=== PATIENT | male | born 1960 | race Caucasian/White ===

== ENCOUNTER 2018-06-09 10:13 | Inpatient (IN) | payer OTHER ==
[~2018-06-09] VITALS: Ht 182.9 cm; Wt 115.9 kg
[2018-06-09] VITALS (13 sets, daily range): BP systolic 112–132; BP diastolic 73–85
[2018-06-09] MEDS ORDERED: ANTACID SUSP 30 ML UDC (MYLANTA) PO ONE (10:30)
[2018-06-09] MEDS ORDERED: LIDOCAINE 2% VISCOUS 15 ML UDC PO ONE (10:30)
[2018-06-09] MEDS ORDERED: ASPIRIN 81 MG CHEW (CHILDREN'S ASA) PO ONE (10:30)
[2018-06-09] MEDS ORDERED: FAMOTIDINE 20 MG (PEPCID) TABLET PO STA (10:30)
--- NOTE | 2018-06-09 10:30 | ED Chest Pain ---
General Chief Complaint: Chest Pain Stated Complaint: CP Source: patient, spouse Exam Limitations: no limitations History of Present Illness Date Seen by Provider: Jun 09, 2018 Time Seen by Provider: 10:10 Initial Comments Patient presents to ER by private conveyance with chest pain that started yesterday morning. The pain is worse on deep inspiration or direct palpation over the left sternal margin. He does not have a history of coronary disease or COPD but he does wear CPAP and has had lung infections in the past. No cough. No fevers or chills. He took some Tylenol earlier today and that helped his pain some. No familial history of heart disease. He does not smoke have diabetes hypercholesterolemia, hypertension or hypothyroidism. Pain radiates down bilateral arms. Allergies and Home Medications Allergies Coded Allergies: No Known Drug Allergies (Unverified , 06/09/18) Home Medications Cyclobenzaprine HCl 10 Mg Tablet, 5 MG PO PRN PRN for BACK PAIN, (Reported) Metoprolol Succinate 50 Mg Tab.er.24h, 50 MG PO DAILY, (Reported) Patient Home Medication List Home Medication List Reviewed: Yes Review of Systems Review of Systems Constitutional: No chills, No diaphoresis, No fever, No malaise EENTM: No Blurred Vision, No Double Vision Respiratory: Denies Cough; Shortness of Air Cardiovascular: See HPI, Chest Pain; Denies Edema, Denies Irregular Heart Rate , Denies Lightheadedness, Denies Palpitations, Denies Syncope Gastrointestinal: Denies Constipated, Denies Diarrhea, Denies Nausea Genitourinary: Denies Burning, Denies Discharge Musculoskeletal: No back pain, No joint pain Skin: No pruritus, No rash Past Ivqhjgy-Lwkzyn-Blswrw Hx Patient Social History Alcohol Use: Denies Use Recreational Drug Use: No Smoking Status: Never a Smoker Recent Foreign Travel: No Contact w/Someone Who Travel: No Physical Exam Vital Signs Vital Signs - First Documented 06/09/18 10:24 Temp 98.1 Pulse 78 Resp 24 B/P (MAP) 179/108 (131) Pulse Ox 93 O2 Delivery Room Air Capillary Refill : Less Than 3 Seconds Height, Weight, BMI Height: '" Weight: lbs. oz. kg; BMI Method: General Appearance: Anxious, Mild Distress HEENT: PERRL/EOMI, Moist Mucous Membranes Neck: Full Range of Motion, Normal Inspection Respiratory: No Chest Non Tender; Lungs Clear, Normal Breath Sounds, No Accessory Muscle Use, No Respiratory Distress Cardiovascular: Regular Rate, Rhythm, No Edema, Normal Peripheral Pulses Extremity: Normal Capillary Refill, Normal Inspection, No Pedal Edema Neurologic/Psychiatric: Alert, Oriented x3, No Motor/Sensory Deficits Skin: Normal Color, Warm/Dry Progress/Results/Core Measures Results/Orders Lab Results Laboratory Tests Test 06/09/18 10:20 Range/Units White Blood Count 9.3 4.3-11.0 10^3/uL Red Blood Count 5.65 4.35-5.85 10^6/uL Hemoglobin 17.1 13.3-17.7 G/DL Hematocrit 50 40-54 % Mean Corpuscular Volume 89 80-99 FL Mean Corpuscular Hemoglobin 30 25-34 PG Mean Corpuscular Hemoglobin Concent 34 32-36 G/DL Red Cell Distribution Width 13.2 10.0-14.5 % Platelet Count 272 130-400 10^3/uL Mean Platelet Volume 10.2 7.4-10.4 FL Neutrophils (%) (Auto) 64 42-75 % Lymphocytes (%) (Auto) 25 12-44 % Monocytes (%) (Auto) 8 0-12 % Eosinophils (%) (Auto) 3 0-10 % Basophils (%) (Auto) 0 0-10 % Neutrophils # (Auto) 6.0 1.8-7.8 X 10^3 Lymphocytes # (Auto) 2.4 1.0-4.0 X 10^3 Monocytes # (Auto) 0.7 0.0-1.0 X 10^3 Eosinophils # (Auto) 0.2 0.0-0.3 10^3/uL Basophils # (Auto) 0.0 0.0-0.1 10^3/uL Prothrombin Time 13.6 12.2-14.7 SEC INR Comment 1.0 0.8-1.4 Activated Partial Thromboplast Time 37 H 24-35 SEC Sodium Level 136 135-145 MMOL/L Potassium Level 4.0 3.6-5.0 MMOL/L Chloride Level 106 98-107 MMOL/L Carbon Dioxide Level 19 L 21-32 MMOL/L Anion Gap 11 5-14 MMOL/L Blood Urea Nitrogen 13 7-18 MG/DL Creatinine 1.02 0.60-1.30 MG/DL Estimat Glomerular Filtration Rate > 60 BUN/Creatinine Ratio 13 Glucose Level 177 H 70-105 MG/DL Calcium Level 9.3 8.5-10.1 MG/DL Corrected Calcium 9.0 8.5-10.1 MG/DL Magnesium Level 2.2 1.8-2.4 MG/DL Total Bilirubin 0.7 0.1-1.0 MG/DL Aspartate Amino Transf (AST/SGOT) 35 H 5-34 U/L Alanine Aminotransferase (ALT/SGPT) 63 H 0-55 U/L Alkaline Phosphatase 56 40-136 U/L Myoglobin 95.8 H 10.0-92.0 NG/ML Troponin I 0.104 H <0.028 NG/ML B-Type Natriuretic Peptide 31.1 <100.0 PG/ML Total Protein 7.4 6.4-8.2 GM/DL Albumin 4.4 3.2-4.5 GM/DL My Orders Orders - XAVIJUAQUIN J Continuous Ekg Monitoring (06/09/18 10:24) Ekg Tracing (06/09/18 10:24) Cbc With Automated Diff (06/09/18 10:30) Magnesium (06/09/18 10:30) Cardiac Profile 1 (06/09/18 10:30) Comprehensive Metabolic Panel (06/09/18 10:30) Myoglobin Serum (06/09/18 10:30) Protime With Inr (06/09/18 10:30) Partial Thromboplastin Time (06/09/18 10:30) O2 (06/09/18 10:30) Ed Iv/Invasive Line Start (06/09/18 10:30) BNP (06/09/18 10:30) Nitroglycerin 0.4 Mg Btl 25's (Nitrostat (06/09/18 10:30) Aspirin Chewable Tablet (Baby Aspirin Ch (06/09/18 10:30) Lidocaine 2% Viscous 15 Ml (Xylocaine Vi (06/09/18 10:30) Famotidine Tablet (Pepcid Tablet) (06/09/18 10:30) Antacid Suspension (Mylanta Suspension (06/09/18 10:30) Chest Pa/Lat (2 View) (06/09/18 10:30) Ondansetron Injection (Zofran Injectio (06/09/18 11:15) Clopidogrel Tablet (Plavix Tablet) (06/09/18 11:15) Enoxaparin Injection (Lovenox Injection) (06/09/18 11:15) Metoprolol Succinate (Xl) Tab (Toprol Xl (06/09/18 11:15) Ondansetron Injection (Zofran Injectio (06/09/18 11:11) Lactated Ringers (Lr 1000 Ml Iv Solution (06/09/18 11:30) Medications Given in ED Current Medications Medications Dose Ordered Sig/Duglas Route Start Time Stop Time Status Last Admin Dose Admin Aspirin 324 mg ONCE ONCE PO 06/09/18 10:30 06/09/18 10:33 DC 06/09/18 10:44 324 MG Clopidogrel Bisulfate 300 mg ONCE ONCE PO 06/09/18 11:15 06/09/18 11:16 DC 06/09/18 11:24 300 MG Enoxaparin Sodium 120 mg ONCE ONCE SC 06/09/18 11:15 06/09/18 11:16 DC 06/09/18 11:24 120 MG Nitroglycerin 0.4 mg UD PRN SL 06/09/18 10:30 06/09/18 11:53 0.4 MG Ondansetron HCl 4 mg ONCE ONCE IVP 06/09/18 11:15 06/09/18 11:16 DC 06/09/18 11:14 4 MG Vital Signs/I&O 06/09/18 06/09/18 10:24 10:24 Temp 98.1 Pulse 78 Resp 24 B/P (MAP) 179/108 (131) Pulse Ox 93 O2 Delivery Room Air Progress Progress Note #1: Time: 10:42 Progress Note No significant risk factors or history of coronary disease. No familial history. Chest pain is reproducible by deep inspiration or direct palpation and has been going on for 24 hours therefore I would expect troponin to be positive if this had anything to do with heart. More likely this is related to chest wall discomfort. We'll give some nitroglycerin and a GI cocktail just to rule some things out. ED ACS of 9 points lower risk score. If the patient also has: (1) EKG without new ischemic changes and (2) negative initial and 2-hour troponins, then this patient is safe for discharge to early outpatient follow-up investigation (or proceed to earlier inpatient testing). If EKG with ischemic changes or positive troponin, they are not low risk and require normal risk stratification. Progress Note #2: Time: 11:43 Progress Note Patient's chest pain went back up so he ordered some morphine and he started having a lot of nausea so we repeated an EKG which demonstrated new changes or blocks elevation in lead V2 with concurrent 1 block in V1 and 2 blocks of elevation in V3. There is reciprocal changes in the inferior leads of minimal 1- [address] depression. Notified Dr. Charles, activated the catheter lab and since his pain is still an 8 out of 10 after the morphine we will give him another nitroglycerin which did help before. Phenergan has been added to his IV fluids. Initial ECG Impression Date: Jun 09, 2018 Initial ECG Impression Time: 10:13 Initial ECG Rate: 77 Initial ECG Rhythm: Normal Sinus Initial ECG Intervals: Normal Initial ECG Impression: Normal, Nonspecific Changes Initial ECG Comparisson: No Previous ECG Available Comment No ST elevation or depression. Diagnostic Imaging Diagonstic Imaging: Xray Plain Films/CT/US/NM/MRI: chest (2v) Comments [facility] [place] [place] NAME: [facility] REC#: [id number] PT STATUS: REG ER : 1960 PHYSICIAN: JUAQUIN HURLEY MD ADMIT DATE: 06/09/18/ER Draft Date of Exam:06/09/18 CHEST PA/LAT (2 VIEW) INDICATION: Chest pain and dyspnea starting yesterday. COMPARISON: None. DISCUSSION: Two views of the chest were obtained. Normal heart size. No focal consolidation, pleural fluid, or pneumothorax. No osseous abnormality. IMPRESSION: 1. Negative chest. Dictated on workstation # [id number] Dict: 06/09/18 1058 Trans: 06/09/18 1101 [id number] Interpreted by: CEDRIC ASHER MD Electronically signed by: Reviewed: Reviewed by Me Departure Communication (Admissions) Time/Spoke to Admitting Phy: 11:00 Discussed case lab EKG imaging with Dr. Charles and he states the patient cardiac stepdown. He was 300 mg of Plavix, 50 mg of metoprolol succinate and weight-based Lovenox. He would like the patient admitted to his service. STEMI noted at [address] Charles notified at 1144. Gum Rolling Machine Tender paged 1144. Impression Primary Impression: STEMI (ST elevation myocardial infarction) Qualified Codes: I21.3 - ST elevation (STEMI) myocardial infarction of unspecified site Disposition: ADMITTED INPATIENT Condition: Stable Admissions Decision to Admit Reason: Admit from ER (General) Decision to Admit/Date: Jun 09, 2018 Time/Decision to Admit Time: 11:28 Departure-Patient Inst. Referrals: NO,LOCAL PHYSICIAN (PCP/Family) Primary Care Physician JUAQUIN HURLEY Jun 09, 2018 10:30
[2018-06-09 10:38] LABS: BASOPHILS % (AUTO) 0 % (0-10); EOSINOPHILS # (AUTO) 0.2 10^3/uL (0.0-0.3); EOSINOPHILS % (AUTO) 3 % (0-10); HEMATOCRIT 50 % (40-54); HEMOGLOBIN 17.1 G/DL (13.3-17.7); LYMPHOCYTES # (AUTO) 2.4 X 10^3 (1.0-4.0); LYMPHOCYTES % (AUTO) 25 % (12-44); MEAN CORPUSCULAR HEMOGLOBIN 30 PG (25-34); MEAN CORPUSCULAR HGB CONC 34 G/DL (32-36); MEAN CORPUSCULAR VOLUME 89 FL (80-99); MEAN PLATELET VOLUME 10.2 FL (7.4-10.4); MONOCYTES # (AUTO) 0.7 X 10^3 (0.0-1.0); MONOCYTES % (AUTO) 8 % (0-12); NEUTROPHILS % (AUTO) 64 % (42-75); PLATELET COUNT 272 10^3/uL (130-400); RED CELL DISTRIBUTION WIDTH 13.2 % (10.0-14.5); WHITE BLOOD COUNT 9.3 10^3/uL (4.3-11.0)
[2018-06-09] MEDS ORDERED: DIPH1TAB PO (10:41)
[2018-06-09] MEDS ORDERED: CYCL10TA9 PO (10:41)
[2018-06-09] MEDS ORDERED: ROSU20TA31 PO (10:41)
[2018-06-09] MEDS ORDERED: METO-370 PO (10:41)
[2018-06-09 10:44] LABS: PROTHROMBIN TIME PATIENT 13.6 SEC (12.2-14.7)
[2018-06-09] MEDS: NITROGLYCERIN 0.4 MG SL TABS BTL 25'S SL PRN ×2 (10:44→11:53)
[2018-06-09 10:53] LABS: ALANINE AMINOTRANSFERASE 63 U/L (0-55); ALBUMIN 4.4 GM/DL (3.2-4.5); ALKALINE PHOSPHATASE 56 U/L (40-136); BILIRUBIN,TOTAL 0.7 MG/DL (0.1-1.0); BUN/CREATININE RATIO 13; CALCIUM 9.3 MG/DL (8.5-10.1); CARBON DIOXIDE 19 MMOL/L (21-32); CHLORIDE 106 MMOL/L (98-107); CREATININE SERUM 1.02 MG/DL (0.60-1.30); GFR ESTIMATED > 60; GLUCOSE 177 MG/DL (70-105); MAGNESIUM 2.2 MG/DL (1.8-2.4); SODIUM 136 MMOL/L (135-145); TOTAL PROTEIN 7.4 GM/DL (6.4-8.2)
--- NOTE | 2018-06-09 11:01 | Diagnostic Imaging Report ---
INDICATION: Chest pain and dyspnea starting yesterday. COMPARISON: None. DISCUSSION: Two views of the chest were obtained. Normal heart size. No focal consolidation, pleural fluid, or pneumothorax. No osseous abnormality. IMPRESSION: 1. Negative chest. Dictated by: Dictated on workstation # [id number]
[2018-06-09] MEDS ORDERED: ONDANSETRON 4 MG/2 ML (SDV) Z0FRAN ONE (11:11)
[2018-06-09] MEDS ORDERED: meTOproloL SUCCINATE 50 MG (TOPROL XL) TAB PO SCH (11:15)
[2018-06-09] MEDS ORDERED: ONDANSETRON 4 MG/2 ML (SDV) Z0FRAN IVP ONE ×2 (11:15→11:45)
[2018-06-09] MEDS ORDERED: ENOXAPARIN 60 MG/0.6 ML (LOVENOX) SYR SC ONE (11:15)
[2018-06-09] MEDS ORDERED: CLOPIDOGREL 300 MG (PLAVIX) TABLET PO ONE ×2 (11:15→13:04)
[2018-06-09] MEDS ORDERED: LACTATED RINGERS 1,000 ML IV ONE (11:30)
[2018-06-09] MEDS ORDERED: morphine INJ 10 MG/ML 1ML (SYR OR VIAL) ONE (11:33)
--- NOTE | 2018-06-09 11:35 | NUR ---
PT REPORTS NAUSEA AND STATES HIS PAIN IS COMING BACK. DR HURLEY INFORMED AT THIS TIME. ORDER FOR MORPHINE AND ZOFRAN RECIEVED.
[2018-06-09] MEDS ORDERED: morphine INJ 10 MG/ML 1ML (SYR OR VIAL) IVP STA ×2 (11:41→12:13)
--- NOTE | 2018-06-09 11:42 | NUR ---
PT REPORTS PAIN HAS NOT IMPROVED AND HAS EPISODE OF VOMITING. DR. HURLEY INFORMED. ORDER FOR EKG RECIEVED.
--- NOTE | 2018-06-09 11:43 | NUR ---
EKG DONE AT THIS TIME AND GIVEN TO DR HURLEY. REPORTS CALL FIBRE CEMENT MOULDER
[2018-06-09] MEDS ORDERED: PROMETHAZINE INJ 25 MG/ML (PHENERGAN) AMP IVP ONE (11:45)
--- NOTE | 2018-06-09 11:46 | NUR ---
Note radha in EDM - 06/09/18 at 1208 by HLGIBBS PT REPORTS PAIN HAS NOT IMPROVED AND HAS EPISODE OF VOMITING. DR. HURLEY INFORMED. ORDER FOR EKG RECIEVED.
--- NOTE | 2018-06-09 11:53 | NUR ---
3RD NITRO GIVEN AT THIS TIME. PT RATING PAIN AT 8/10.
--- NOTE | 2018-06-09 12:03 | NUR ---
DR CHIRINOS HERE TALKING TO PT AT THIS TIME.
[2018-06-09] MEDS ORDERED: MIDAZOLAM 5 MG/5 ML (VERSED) VIAL ONE (12:09)
[2018-06-09] MEDS ORDERED: NITRO DRIP 25000 MCG/D5W 250 ML IV ONE (12:10)
[2018-06-09] MEDS ORDERED: fentaNYL INJECTION 100 MCG/2 ML AMP ONE (12:10)
[2018-06-09] MEDS ORDERED: HEParin 1000 UNIT/ML (10ML VIAL) FOR BOLUS ONE (12:10)
[2018-06-09] MEDS ORDERED: NS IV 1000 ML 1,000 ML ONE (12:10)
[2018-06-09] MEDS ORDERED: HEParin (CATH LAB) 2,000 ML IV ONE (12:10)
[2018-06-09] MEDS ORDERED: LIDOCAINE 1% INJ 20 ML 20 ML VIAL ONE (12:12)
--- NOTE | 2018-06-09 12:18 | Cardiology History & Physical ---
HPI-Cardiology Cardiology H&P Date of Admission 06/09/18 Primary Care Physician Marina,Local Physician Attending Physician Joanie Charles MD, MA [facility] Consulting Physician [facility] CC: Chest pain HPI: 57 yo man with onset of chest pain on the morning of 06/08/18 (a day prior to presentation), mild to mod, waxing and waning, continuously present, not experienced before, non radiating. He presented this am. ECG did not shot ST elevation. Symptoms improved/resolved with s/l NTG. Treated with ASA, clopidogrel, beta-onelia, and enoxaparin. Then worsening of symptoms about 1 1/ 2 later while still in ER. Repeat ECG then showed ST elevation. Currently, with continuing chest pain and some diaphoresis. No palp or syncope. No h/o shortness of breath or syncope or leg swelling Review of Systems-Cardiology Review of Systems Constitutional: malaise; No weight loss, No weight gain Eyes: vision change Ears/Nose/Throat: No ear discharge, No nasal drainage, No recent hearing loss, No ulcerations Respiratory: As described under HPI Cardiovascular: As described under HPI Gastrointestinal: No constipation, No diarrhea; nausea; No vomiting Genitourinary: No dysuria, No hematuria, No urine frequency changes Musculoskeletal: No back pain, No joint pain Skin: No rash, No ulcerations Psychiatric/Neurological: No seizure, No focal weakness, No syncope Hematologic: No bleeding abnormalities APM-Vpthzn-Pwalob Hx Patient Social History Alcohol Use: Denies Use Recreational Drug Use: No Smoking Status: Never a Smoker Recent Foreign Travel: No Recent Infectious Disease Expo: No Past Medical History PMH As described under Assessment. Family Medical History Family Medical History: No fam h/o early CAD or SCD Allergies and Home Medications Allergies Coded Allergies: No Known Drug Allergies (Unverified , 06/09/18) Home Medications Cyclobenzaprine HCl 10 Mg Tablet, 5 MG PO PRN PRN for BACK PAIN, (Reported) Metoprolol Succinate 50 Mg Tab.er.24h, 50 MG PO DAILY, (Reported) Patient Home Medication List Home Medication List Reviewed: Yes Physical Exam-Cardiology Physical Exam Vital Signs/I&O 06/09/18 06/09/18 10:24 10:24 Temp 98.1 Pulse 78 Resp 24 B/P (MAP) 179/108 (131) Pulse Ox 93 O2 Delivery Room Air Capillary Refill : Less Than 3 Seconds Constitutional: AAO x 3, well-developed, well-nourished HEENT: EOMI, hearing is well preserved; No xanthelasmas are seen Neck: carotid bruit, carotid pulses are 2 + bilaterally Respiratory: No accessory muscle use; lungs clear to percussion, lungs clear to auscultation Cardiovascular: regular rate-rhythm, S1 and S2, systolic murmur (faint ANITHA at card base) Gastrointestinal: No tender; soft; No guarding, No rebound; audible bowel sounds Extremities: No clubbing, No cyanosis, No significant edema Neurologic/Psychiatric: oriented x 3, grossly intact, power is 5/5 both on sides Skin: No rash on exposed areas, No ulcerations on exposed areas Data Review Labs Laboratory Tests 06/09/18 10:20: White Blood Count 9.3, Red Blood Count 5.65, Hemoglobin 17.1, Hematocrit 50, Mean Corpuscular Volume 89, Mean Corpuscular Hemoglobin 30, Mean Corpuscular Hemoglobin Concent 34, Red Cell Distribution Width 13.2, Platelet Count 272, Mean Platelet Volume 10.2, Neutrophils (%) (Auto) 64, Lymphocytes (%) (Auto) 25 , Monocytes (%) (Auto) 8, Eosinophils (%) (Auto) 3, Basophils (%) (Auto) 0, Neutrophils # (Auto) 6.0, Lymphocytes # (Auto) 2.4, Monocytes # (Auto) 0.7, Eosinophils # (Auto) 0.2, Basophils # (Auto) 0.0, Prothrombin Time 13.6, INR Comment 1.0, Activated Partial Thromboplast Time 37H, Sodium Level 136, Potassium Level 4.0, Chloride Level 106, Carbon Dioxide Level 19L, Anion Gap 11 , Blood Urea Nitrogen 13, Creatinine 1.02, Estimat Glomerular Filtration Rate > 60, BUN/Creatinine Ratio 13, Glucose Level 177H, Calcium Level 9.3, Corrected Calcium 9.0, Magnesium Level 2.2, Total Bilirubin 0.7, Aspartate Amino Transf ( AST/SGOT) 35H, Alanine Aminotransferase (ALT/SGPT) 63H, Alkaline Phosphatase 56 , Myoglobin 95.8H, Troponin I 0.104H, B-Type Natriuretic Peptide 31.1, Total Protein 7.4, Albumin 4.4 Laboratory Tests 06/09/18 10:20 A/P-Cardiology Assessment/Admission Diagnosis Ac ant STEMI (onset 1143 on 06/09/18) Hypertension Hyperlipidemia Elevated BMI of approx 35 Admission Status: Inpatient Order (span 2 midnights) Reason for Inpatient Admission: Ac STEMI Discussion and Recomendations * Emergency cath/PCI. I discussed in detail with him the rationale, procedure, risks, benefits, and potential complications of cath and possible PCI, in the presence of his . He understands and wishes to proceed * Has been treated with ASA, clopidogrel, bb, and enoxaparin Clinical Quality Measures AMI/AHF: ASA po Prior to arrival: JOANIE Murphy MD FACP FACC CCDS Jun 09, 2018 12:18
[2018-06-09] MEDS ORDERED: EPTIFIBATIDE BOLUS 20 ML IV ONE (12:40)
[2018-06-09] MEDS ORDERED: EPTIFIBATIDE BOLUS 10 ML IV ONE (12:43)
[2018-06-09] MEDS ORDERED: niCARdipine 25 MG/10 ML (CARDENE) AMP IV ONE (12:45)
[2018-06-09] MEDS ORDERED: NS (IVPB) 250 ML ONE (12:45)
[2018-06-09] MEDS: NS IV 1000 ML 1,000 ML IV SCH ×2 (13:16→23:14)
[2018-06-09] MEDS ORDERED: lisINopril 5 MG (PRINIVIL) TABLET PO NR (14:15)
[2018-06-09] MEDS ORDERED: NITROGLYCERIN 0.4 MG SL TABS BTL 25'S SL PRN (14:15)
[2018-06-09] MEDS ORDERED: morphine INJ 4 MG/ML 1 ML (VIAL/SYRINGE) IV PRN (14:15)
[2018-06-09] MEDS ORDERED: ONDANSETRON 4 MG/2 ML (SDV) Z0FRAN IV PRN (14:30)
--- NOTE | 2018-06-09 14:57 | CARDIAC CATHETERIZATION ---
DATE OF SERVICE: 06/09/2018 CARDIAC CATHETERIZATION AND CORONARY INTERVENTION INDICATIONS FOR THE PROCEDURE: The patient is a 57-year-old man with a history of hypertension and hyperlipidemia, who presented to the emergency room with 24 hours of continuous chest discomfort. Troponin was minimally elevated, but electrocardiogram did not show any significant abnormalities. He was treated with aspirin, clopidogrel, beta blockers, and enoxaparin. Approximately, an hour and a half later, while still in the emergency room, he had recurrence of symptoms and repeat electrocardiogram at 11:43 a.m. showed that there was new ST segment elevation in the anterolateral leads. Accordingly, emergency cardiac catheterization was recommended. Informed consent was obtained for emergency cardiac catheterization and Ad Hoc coronary intervention. DESCRIPTION OF PROCEDURE: He was brought to the cardiac catheterization laboratory. Right groin was prepared and draped in the usual sterile fashion. Lidocaine 1% was used for local anesthesia. Modified Seldinger technique used to advance a 5-German sheath into the right femoral artery. We proceeded with 5-German JL4 guide catheter to carry out left coronary angiography and subsequent coronary interventions that are described below. Following completion of coronary interventions, we carried out diagnostic angiography of the right coronary artery with a 5-German JR4 catheter and left heart catheterization and left ventricular angiography with a 5-German pigtail catheter. At the end of the procedure, angiography of the right femoral artery was carried out through the sheath. Mynx was used to achieve hemostasis. He tolerated the procedure well. He had received aspirin 324 mg orally in the emergency room. He had also received Plavix 300 mg orally and enoxaparin 1 mg/kg subcutaneously in the emergency room. He had also been treated with oral beta blockers in the emergency room. Following completion of the interventional procedure, he received additional 300 mg oral Plavix. He also received a double bolus of Integrilin during the interventional procedure. PERCUTANEOUS INTERVENTION TO THE LEFT ANTERIOR DESCENDING ARTERY: Left anterior descending artery was completely occluded following the origin of a small caliber first diagonal branch. The diagonal branch itself had severe diffuse disease, but was of a small caliber. We advanced a ChoICE Floppy wire across the complete occlusion and placed the tip of the wire in the distal vessel. We carried out balloon angioplasty with Emerge 2.0 x 20 mm balloon. ([id number] time 63 min; this is the [id number] equivalent because he did not present with ST elevation; ST elevation started more than hour after presentation, in the ER) Antegrade flow was restored (improved from RISHABH 0 to RISHABH 3). This was a long lesion that was a bifurcation lesion and involved the origin of small caliber first and second diagonal branches. We stented the left anterior descending artery lesion with Iman 2.75 x 28 mm stent. This does extend across the origin of the first and the second diagonal branch. The stent was deployed at 14 atmospheres. Subsequently, the balloon was pulled back to the proximal two-thirds of the standard portion and inflated up to 18 atmospheres. This was done because the proximal portion of the stented segment is slightly larger than the distal portion of the stented segment. Subsequent angiography revealed 0% residual stenosis, but the second diagonal branch was not exhibiting any significant flow at that time. The second diagonal branch, as stated, is a very small branch and not amenable to intervention. We then proceeded with percutaneous intervention of the left circumflex artery, which is described below. Following completion of the left circumflex intervention, we note that there is now antegrade flow in the second diagonal branch that has occurred without any mechanical intervention to this small caliber branch. PERCUTANEOUS INTERVENTION OF THE LEFT CIRCUMFLEX ARTERY: The left circumflex artery is large and was exhibiting 70-80% stenosis in its mid to distal portion. This was associated with some haziness, accordingly, we carried out intervention to this vessel. A ChoICE Floppy wire was advanced across the lesion and we advanced Iman 4.0 x 15 mm stent. This was carefully positioned to cover the entire lesion. The stent balloon was inflated to 16 atmospheres. Full stent expansion was achieved. Subsequent angiography reveals 0% residual stenosis at the previous site of 70-80% stenosis in the mid to distal left circumflex artery. Flow throughout the vessel is normal (RISHABH). HEMODYNAMICS: Left ventricular end-diastolic pressure following coronary angiography was 17 mmHg. There was no significant pressure gradient on pullback across the aortic valve. Ascending aortic pressure was 114/71 with a mean of 66 mmHg. LEFT VENTRICULAR ANGIOGRAPHY: Left ventricular angiography was carried out in the right anterior oblique projection. Global left ventricular systolic function is mildly impaired. There is anterolateral and apical hypokinesis. There does not appear to be significant mitral regurgitation on this study. CONCLUSIONS: 1. Multivessel coronary artery disease. Complete occlusion of mid left anterior descending artery was relieved and the mid left anterior descending artery stented with Iman 2.75 x 28 mm stent. Two small caliber diagonal branches arise from the diseased segment of the left circumflex artery. They exhibit severe proximal and mid vessel disease and are not amenable to intervention. The left circumflex artery exhibited 70-80% mid vessel stenosis that was successfully stented with Iman 4.0 x 15 mm stent. The right coronary artery is dominant and does not exhibit significant obstructive disease. 2. Impairment of left ventricular systolic function, mild, with left ventricular ejection fraction of 45-50%. 3. Anterolateral and apical hypokinesis. 4. Mild elevation of left ventricular end diastolic pressure. DISCUSSION AND RECOMMENDATIONS: He is being hospitalized. Treatment is with aspirin, clopidogrel, beta blockers, MIGUEL inhibitors, and statins. Further decisions will be based on his hospital course. Job ID: [id number] DocumentID: [id number] Dictated Date: 06/09/2018 13:33:42 Associate Manager Date: 06/09/2018 14:57:11 Dictated By: ASTER CHIRINOS MD, MA, FACP, FACC, MTDD
[2018-06-09] MEDS: ROSUVASTATIN 10 MG (CRESTOR) TABLET PO SCH (20:17)
[2018-06-09] MEDS ORDERED: ENOXAPARIN 300 MG/3 ML (LOVENOX) MULTI-DOSE VIAL SQ SCH (23:30)
[2018-06-10] VITALS (16 sets, daily range): BP systolic 103–138; BP diastolic 68–82
[2018-06-10] MEDS: ACETAMINOPHEN 325 MG TABLET PO PRN (02:32)
[2018-06-10 03:48] LABS: BASOPHILS % (AUTO) 0 % (0-10); EOSINOPHILS % (AUTO) 0 % (0-10); HEMATOCRIT 47 % (40-54); HEMOGLOBIN 15.7 G/DL (13.3-17.7); LYMPHOCYTES # (AUTO) 2.2 X 10^3 (1.0-4.0); LYMPHOCYTES % (AUTO) 14 % (12-44); MEAN CORPUSCULAR HEMOGLOBIN 31 PG (25-34); MEAN CORPUSCULAR HGB CONC 34 G/DL (32-36); MEAN CORPUSCULAR VOLUME 91 FL (80-99); MEAN PLATELET VOLUME 10.3 FL (7.4-10.4); MONOCYTES # (AUTO) 1.6 X 10^3 (0.0-1.0); MONOCYTES % (AUTO) 10 % (0-12); NEUTROPHILS # (AUTO) 12.6 X 10^3 (1.8-7.8); NEUTROPHILS % (AUTO) 77 % (42-75); PLATELET COUNT 247 10^3/uL (130-400); RED CELL DISTRIBUTION WIDTH 13.3 % (10.0-14.5); WHITE BLOOD COUNT 16.4 10^3/uL (4.3-11.0)
[2018-06-10 04:13] LABS: ALANINE AMINOTRANSFERASE 56 U/L (0-55); ALKALINE PHOSPHATASE 53 U/L (40-136); BILIRUBIN,TOTAL 0.5 MG/DL (0.1-1.0); BUN/CREATININE RATIO 10; CALCIUM 9.1 MG/DL (8.5-10.1); CARBON DIOXIDE 18 MMOL/L (21-32); CHLORIDE 107 MMOL/L (98-107); CHOLESTEROL 145 MG/DL (< 200); CREATININE SERUM 0.98 MG/DL (0.60-1.30); GFR ESTIMATED > 60; GLUCOSE 156 MG/DL (70-105); HDL CHOLESTEROL 26 MG/DL (40-60); POTASSIUM 3.7 MMOL/L (3.6-5.0); SODIUM 138 MMOL/L (135-145); TOTAL PROTEIN 6.7 GM/DL (6.4-8.2); TRIGLYCERIDES 379 MG/DL (<150); VLDL CHOLESTEROL 76 MG/DL (5-40)
[2018-06-10] MEDS: meTOproloL SUCCINATE 50 MG (TOPROL XL) TAB PO SCH (09:10)
[2018-06-10] MEDS: ASPIRIN 81 MG CHEW (CHILDREN'S ASA) PO SCH (09:10)
[2018-06-10] MEDS: CLOPIDOGREL 75 MG (PLAVIX) TABLET PO SCH (09:10)
[2018-06-10] MEDS: lisINopril 5 MG (PRINIVIL) TABLET PO SCH (09:10)
[2018-06-10] MEDS: NS IV 1000 ML 1,000 ML IV SCH (10:07)
--- NOTE | 2018-06-10 12:01 | Progress Note-Cardiology ---
Cardiology SOAP Progress Note Subjective: No cp or palp or syncope or shortness of breath or groin discomfort or leg discoloration Objective: I&O/Vital Signs 06/10/18 06/10/18 06/10/18 06/10/18 00:00 00:00 01:00 01:00 Pulse 81 79 78 Resp 16 21 B/P (MAP) 120/74 (89) 115/72 (86) Pulse Ox 93 93 O2 Delivery NIV CPAP NIV CPAP NIV CPAP O2 Flow Rate 2.00 2.00 2.00 06/10/18 06/10/18 06/10/18 06/10/18 02:00 03:00 03:32 04:00 Temp 98.9 Pulse 86 86 Resp 19 21 B/P (MAP) 114/73 (87) 114/75 (88) Pulse Ox 92 94 O2 Delivery NIV CPAP NIV CPAP NIV CPAP O2 Flow Rate 2.00 2.00 2.00 06/10/18 06/10/18 06/10/18 06/10/18 04:00 05:00 07:00 07:00 Pulse 76 80 79 79 Resp 20 12 21 B/P (MAP) 115/74 (88) 123/81 (95) 117/73 (88) Pulse Ox 92 95 95 O2 Delivery NIV CPAP NIV CPAP NIV CPAP O2 Flow Rate 2.00 2.00 2.00 06/10/18 06/10/18 06/10/18 06/10/18 08:00 08:00 08:00 09:00 Temp 98.7 98.9 Pulse 80 Resp 25 B/P (MAP) 103/68 (80) Pulse Ox 96 93 O2 Delivery Room Air NIV CPAP O2 Flow Rate 2.00 2.00 06/10/18 06/10/18 06/10/18 06/10/18 09:00 09:40 10:00 10:00 Temp 98.9 98.9 Pulse 77 75 Resp 21 21 B/P (MAP) 107/70 (82) 125/82 (96) Pulse Ox 94 93 O2 Delivery NIV CPAP NIV CPAP O2 Flow Rate 2.00 2.00 06/10/18 11:09 Temp 98.8 06/10/18 00:00 Intake Total 1940 ml Output Total 400 ml Balance 1540 ml Weight (Pounds): 264 Weight (Ounces): 3.0 Weight (Calculated Kilograms): 119.265566 Groin site without hematoma: Yes Condition: DP/PT pulses palpable Bruising: mild bruising Constitutional: AAO x 3, well-developed, well-nourished Respiratory: No accessory muscle use; lungs clear to percussion, lungs clear to auscultation Cardiovascular: regular rate-rhythm, S1 and S2, systolic murmur (faint ANITHA at card base) Gastrointestional: No tender; soft; No guarding, No rebound; audible bowel sounds Extremities: No clubbing, No cyanosis, No significant edema Neurologic/Psychiatric: oriented x 3, grossly intact, power is 5/5 both on sides Skin: No rash on exposed areas, No ulcerations on exposed areas Results/Procedures: Labs Laboratory Tests 06/10/18 03:30: White Blood Count 16.4H, Red Blood Count 5.14, Hemoglobin 15.7, Hematocrit 47, Mean Corpuscular Volume 91, Mean Corpuscular Hemoglobin 31, Mean Corpuscular Hemoglobin Concent 34, Red Cell Distribution Width 13.3, Platelet Count 247, Mean Platelet Volume 10.3, Neutrophils (%) (Auto) 77H, Lymphocytes (%) (Auto) 14 , Monocytes (%) (Auto) 10, Eosinophils (%) (Auto) 0, Basophils (%) (Auto) 0, Neutrophils # (Auto) 12.6H, Lymphocytes # (Auto) 2.2, Monocytes # (Auto) 1.6H, Eosinophils # (Auto) 0.0, Basophils # (Auto) 0.0, Sodium Level 138, Potassium Level 3.7, Chloride Level 107, Carbon Dioxide Level 18L, Anion Gap 13, Blood Urea Nitrogen 10, Creatinine 0.98, Estimat Glomerular Filtration Rate > 60, BUN/ Creatinine Ratio 10, Glucose Level 156H, Calcium Level 9.1, Corrected Calcium 9.1, Total Bilirubin 0.5, Aspartate Amino Transf (AST/SGOT) 64H, Alanine Aminotransferase (ALT/SGPT) 56H, Alkaline Phosphatase 53, Total Protein 6.7, Albumin 4.0, Triglycerides Level 379H, Cholesterol Level 145, LDL Cholesterol Direct 73, VLDL Cholesterol 76H, HDL Cholesterol 26L, Thyroid Stimulating Hormone (TSH) 0.70 Laboratory Tests 06/09/18 10:20 06/10/18 03:30 A/P: Assessment: Ac ant STEMI (onset 1143 on 4/27/19) treated with primary PCI Cath on 06/09/18: 1. Multivessel coronary artery disease. Complete occlusion of mid LAD was relieved with Iman 2.75 x 28 mm stent. Two small caliber diagonal branches arise from the diseased segment of the lad. They exhibit severe proximal and mid vessel disease and are not amenable to intervention. The left circumflex artery exhibited 70-80% mid vessel stenosis that was successfully stented with Iman 4.0 x 15 mm stent. The right coronary artery is dominant and does not exhibit significant obstructive disease. Impairment of left ventricular systolic function, mild, with left ventricular ejection fraction of 45-50%. Anterolateral and apical hypokinesis. Mild elevation of left ventricular end diastolic pressure. Hypertension Hyperlipidemia Elevated BMI of approx 35 Plan: * I had a detailed discussion with him and his regarding CAD findings and interventions undertaken * We reviewed and discussed risk factor mod * Transfer to floor * Increase ambulation * Monitor labs Clinical Quality Measures AMI/AHF: ASA po Prior to arrival: ASTER Murphy MD FACP FAC CCDS Jun 10, 2018 12:01
--- NOTE | 2018-06-10 13:33 | NUR ---
PT HAS VISITORS AND VOICED HE WOULD EAT LUNCH LATER --
[2018-06-10] MEDS ORDERED: FLEET ENEMA ADULT 1 EA BTL PR PRN (14:00)
[2018-06-10] MEDS ORDERED: DOCUSATE SODIUM 100 MG (COLACE) CAP PO ONE (14:08)
[2018-06-10] MEDS: DOCUSATE SODIUM 100 MG (COLACE) CAP PO PRN ×2 (14:13→22:00)
--- NOTE | 2018-06-10 14:50 | NUR ---
Patient transferred to4TH FLOOR RM 433 FROM [facility] perW/C accompanied by ICU staff. Patient and family notified and understand transfer. Personal belongings with patient. Report givenTO 4TH FLOOR RN BY THIS RN. NOTE THAT PT VOICED HE DID NOT EAT LUNCH BUT WILL ORDER LATER IF HE GETS HUNGRY -- AND THAT PT DID GET COLACE TAB PER PRN ORDERS AND THAT 4TH FLOOR RN IS AWARE
--- NOTE | 2018-06-10 14:50 | NUR ---
RECEIVED REPORT FROM YANNICK VILLEGAS, TRANSFERRED FROM ICU, FAMILY AT BEDSIDE, CALL LIGHT WITHIN REACH, DENIES PAIN, DRESSING TO RIGHT CATH SITE INTACT, NO HEMATOMA, PULSE PRESENT, WILL CONTINUE TO MONITOR.
[2018-06-10] MEDS: ROSUVASTATIN 10 MG (CRESTOR) TABLET PO SCH (17:56)
[2018-06-11 03:19] VITALS: BP 126/79
[2018-06-11] MEDS: ACETAMINOPHEN 325 MG TABLET PO PRN (03:19)
[2018-06-11 06:58] LABS: BASOPHILS % (AUTO) 0 % (0-10); EOSINOPHILS # (AUTO) 0.2 10^3/uL (0.0-0.3); EOSINOPHILS % (AUTO) 2 % (0-10); HEMATOCRIT 50 % (40-54); HEMOGLOBIN 16.6 G/DL (13.3-17.7); LYMPHOCYTES # (AUTO) 2.7 X 10^3 (1.0-4.0); LYMPHOCYTES % (AUTO) 21 % (12-44); MEAN CORPUSCULAR HEMOGLOBIN 30 PG (25-34); MEAN CORPUSCULAR HGB CONC 33 G/DL (32-36); MEAN CORPUSCULAR VOLUME 90 FL (80-99); MEAN PLATELET VOLUME 10.1 FL (7.4-10.4); MONOCYTES # (AUTO) 1.5 X 10^3 (0.0-1.0); MONOCYTES % (AUTO) 12 % (0-12); NEUTROPHILS # (AUTO) 8.1 X 10^3 (1.8-7.8); NEUTROPHILS % (AUTO) 65 % (42-75); PLATELET COUNT 227 10^3/uL (130-400); RED CELL DISTRIBUTION WIDTH 13.6 % (10.0-14.5); WHITE BLOOD COUNT 12.5 10^3/uL (4.3-11.0)
[2018-06-11 07:22] LABS: ALANINE AMINOTRANSFERASE 54 U/L (0-55); ALBUMIN 4.2 GM/DL (3.2-4.5); ALKALINE PHOSPHATASE 59 U/L (40-136); BILIRUBIN,TOTAL 0.9 MG/DL (0.1-1.0); BUN/CREATININE RATIO 10; CALCIUM 9.4 MG/DL (8.5-10.1); CARBON DIOXIDE 20 MMOL/L (21-32); CHLORIDE 107 MMOL/L (98-107); CREATININE SERUM 1.03 MG/DL (0.60-1.30); GFR ESTIMATED > 60; GLUCOSE 99 MG/DL (70-105); MAGNESIUM 2.6 MG/DL (1.8-2.4); POTASSIUM 4.3 MMOL/L (3.6-5.0); SODIUM 138 MMOL/L (135-145); TOTAL PROTEIN 7.5 GM/DL (6.4-8.2)
[2018-06-11 08:00] VITALS: BP 129/84
--- NOTE | 2018-06-11 08:42 | Progress Note-Cardiology ---
Cardiology SOAP Progress Note Subjective: Sitting up in bed. C/O some tenderness at right groin site. No c/o CP, palpitations, syncope or near syncope. No c/o dyspnea. Objective: I&O/Vital Signs 06/11/18 06/11/18 06/11/18 06/11/18 07:00 08:00 08:00 11:43 Temp 99.1 Pulse 84 74 74 Resp 18 18 B/P (MAP) 129/84 (99) 129/84 Pulse Ox 94 94 O2 Delivery Room Air Room Air Room Air O2 Flow Rate 2.00 06/11/18 00:00 Intake Total 860 ml Balance 860 ml Weight (Pounds): 255 Weight (Ounces): 9.6 Weight (Calculated Kilograms): 115.517249 Groin site without hematoma: Yes Condition: DP/PT pulses palpable Bruising: mild bruising Constitutional: AAO x 3, well-developed, well-nourished Respiratory: No accessory muscle use; lungs clear to percussion, lungs clear to auscultation Cardiovascular: regular rate-rhythm, S1 and S2, systolic murmur (faint ANITHA at card base) Gastrointestional: No tender; soft; No guarding, No rebound; audible bowel sounds Extremities: No clubbing, No cyanosis, No significant edema Neurologic/Psychiatric: oriented x 3, grossly intact, power is 5/5 both on sides Skin: No rash on exposed areas, No ulcerations on exposed areas Results/Procedures: Labs Laboratory Tests 06/11/18 06:34: White Blood Count 12.5H, Red Blood Count 5.50, Hemoglobin 16.6, Hematocrit 50, Mean Corpuscular Volume 90, Mean Corpuscular Hemoglobin 30, Mean Corpuscular Hemoglobin Concent 33, Red Cell Distribution Width 13.6, Platelet Count 227, Mean Platelet Volume 10.1, Neutrophils (%) (Auto) 65, Lymphocytes (%) (Auto) 21 , Monocytes (%) (Auto) 12, Eosinophils (%) (Auto) 2, Basophils (%) (Auto) 0, Neutrophils # (Auto) 8.1H, Lymphocytes # (Auto) 2.7, Monocytes # (Auto) 1.5H, Eosinophils # (Auto) 0.2, Basophils # (Auto) 0.0, Sodium Level 138, Potassium Level 4.3, Chloride Level 107, Carbon Dioxide Level 20L, Anion Gap 11, Blood Urea Nitrogen 10, Creatinine 1.03, Estimat Glomerular Filtration Rate > 60, BUN/ Creatinine Ratio 10, Glucose Level 99, Calcium Level 9.4, Corrected Calcium 9.2 , Magnesium Level 2.6H, Total Bilirubin 0.9, Aspartate Amino Transf (AST/SGOT) 53H, Alanine Aminotransferase (ALT/SGPT) 54, Alkaline Phosphatase 59, Total Protein 7.5, Albumin 4.2 A/P: Assessment: Ac ant STEMI (onset 1143 on 06/09/18) treated with primary PCI Cath on 06/09/18: 1. Multivessel coronary artery disease. Complete occlusion of mid LAD was relieved with Iman 2.75 x 28 mm stent. Two small caliber diagonal branches arise from the diseased segment of the lad. They exhibit severe proximal and mid vessel disease and are not amenable to intervention. The left circumflex artery exhibited 70-80% mid vessel stenosis that was successfully stented with Iman 4.0 x 15 mm stent. The right coronary artery is dominant and does not exhibit significant obstructive disease. Impairment of left ventricular systolic function, mild, with left ventricular ejection fraction of 45-50%. Anterolateral and apical hypokinesis. Mild elevation of left ventricular end diastolic pressure. Hypertension Hyperlipidemia Elevated BMI of approx 35 Sleep apnea Plan: * Dr. Charles has had a detailed discussion with him and his regarding CAD findings and interventions undertaken * Risk factor modification * Discharge to home * Out pt f/u * Discussed in detail medication regimen, continue statin, Plavix, ASA and BB * Encouraged ambulation Physician Assessment Physician Assessment No cp or palp or syncope or shortness of breath or groin discomfort. Wishes to go home Lungs clear Cor: reg Ext: no c/c/e A&R * As documented in our note above that I updated (italics) and as noted below * We again discussed risk factor mod, med compliance, and outpt f/u, and answered questions Clinical Quality Measures AMI/AHF: ASA po Prior to arrival: No TOMASA LIANG [facility] Jun 11, 2018 08:41 ASTER CHARLES MD [facility] Jun 11, 2018 17:47
[2018-06-11] MEDS ORDERED: LISI-556 PO (08:45)
[2018-06-11] MEDS ORDERED: ASPI-999 PO (08:45)
[2018-06-11] MEDS ORDERED: CLOP75TA28 PO (08:45)
--- NOTE | 2018-06-11 08:47 | Discharge Inst-Cardiology ---
Discharge Inst-Cardiac Discharge Medications New Medications: Aspirin (Aspirin) 81 Mg Tab.chew 81 MG PO DAILY, #100 TAB 5 Refills Clopidogrel Bisulfate (Clopidogrel) 75 Mg Tablet 75 MG PO DAILY, #30 TAB 5 Refills Lisinopril (Lisinopril) 5 Mg Tablet 5 MG PO DAILY, #30 TAB 5 Refills Continued Medications: Cyclobenzaprine HCl (Cyclobenzaprine HCl) 10 Mg Tablet 5 MG PO PRN PRN for BACK PAIN, TAB Diphenoxylate HCl/Atropine (Lomotil 2.5-0.025 mg Tablet) 1 Each Tablet 1 EACH PO, TAB Metoprolol Succinate (Metoprolol Succinate) 50 Mg Tab.er.24h 50 MG PO DAILY, TAB Rosuvastatin Calcium (Rosuvastatin Calcium) 20 Mg Tablet 20 MG PO, TAB New, Converted or Re-Newed RX: Transmitted to Pharmacy Patient Instructions Patient Instructions: Please schedule follow up appointment to see Dr. Charles in 1-2 weeks Lab: BMP and Magnessium level in one week TOMASA LIANG Jun 11, 2018 08:47
--- NOTE | 2018-06-11 08:57 | Cardiology Discharge Summary ---
Diagnosis/Chief Complaint Date of Admission Jun 09, 2018 at 11:25 Date of Discharge 06-11-18 Admission Diagnosis Ac ant STEMI (onset 1143 on 06/09/18) Hypertension Hyperlipidemia Elevated BMI of approx 35 Final/Discharge Diagnosis Ac ant STEMI (onset 1143 on 06/09/18) treated with primary PCI Cath on 06/09/18: 1. Multivessel coronary artery disease. Complete occlusion of mid LAD was relieved with Iman 2.75 x 28 mm stent. Two small caliber diagonal branches arise from the diseased segment of the lad. They exhibit severe proximal and mid vessel disease and are not amenable to intervention. The left circumflex artery exhibited 70-80% mid vessel stenosis that was successfully stented with Iman 4.0 x 15 mm stent. The right coronary artery is dominant and does not exhibit significant obstructive disease. Impairment of left ventricular systolic function, mild, with left ventricular ejection fraction of 45-50%. Anterolateral and apical hypokinesis. Mild elevation of left ventricular end-diastolic pressure. Hypertension Hyperlipidemia Elevated BMI of approx 35 Sleep apnea Chief Complaint/HPI Chief Complaint/HPI CC: Chest pain HPI: 57 yo man with onset of chest pain on the morning of 06/08/18 (a day prior to presentation), mild to mod, waxing and waning, continuously present, not experienced before, non radiating. He presented this am. ECG did not shot ST elevation. Symptoms improved/resolved with s/l NTG. Treated with ASA, clopidogrel, beta-onelia, and enoxaparin. Then worsening of symptoms about 1 1/ 2 later while still in ER. Repeat ECG then showed ST elevation. Currently, with continuing chest pain and some diaphoresis. No palp or syncope. No h/o shortness of breath or syncope or leg swelling Discharge Summary Procedures Cardiac cath with successful intervention. Please refer to Dr. Charles's cardiac cath report of 06-09-18 for details. Discharge Physical Examination Please refer to cardiology progress note of 06-11-18 Hospital Course Please refer to progress note of 06-11-18 Pending Labs Discussion & Recommendations Discussion Dr. Charles has had a detailed discussion with him and his regarding CAD findings and interventions undertaken Risk factor modification Discharge to home Out pt f/u Discussed in detail medication regimen, continue statin, Plavix, ASA and BB Follow up appt.: One week Home Medications Reviewed patient Home Medication Reconciliation performed by pharmacy medication reconciliations physical therapist technician and/or nursing. Patients Allergies have been reviewed. Discharge Home Medications: Discharge Medications New Medications: Aspirin (Aspirin) 81 Mg Tab.chew 81 MG PO DAILY, #100 TAB 5 Refills Clopidogrel Bisulfate (Clopidogrel) 75 Mg Tablet 75 MG PO DAILY, #30 TAB 5 Refills Lisinopril (Lisinopril) 5 Mg Tablet 5 MG PO DAILY, #30 TAB 5 Refills Continued Medications: Cyclobenzaprine HCl (Cyclobenzaprine HCl) 10 Mg Tablet 5 MG PO PRN PRN for BACK PAIN, TAB Diphenoxylate HCl/Atropine (Lomotil 2.5-0.025 mg Tablet) 1 Each Tablet 1 EACH PO, TAB Metoprolol Succinate (Metoprolol Succinate) 50 Mg Tab.er.24h 50 MG PO DAILY, TAB Rosuvastatin Calcium (Rosuvastatin Calcium) 20 Mg Tablet 20 MG PO, TAB Clinical Quality Measures AMI/AHF: ASA po Prior to arrival: No DVT/VTE Risk/Contraindication: Risk Factor Score Per Nursin RFS Level Per Nursing on Admit: 2=Moderate TOMASA LIANG Jun 11, 2018 08:57 ASTER CHARLES MD FACP FAC CCDS Jun 12, 2018 19:43
[2018-06-11] MEDS: lisINopril 5 MG (PRINIVIL) TABLET PO SCH (09:08)
[2018-06-11] MEDS: CLOPIDOGREL 75 MG (PLAVIX) TABLET PO SCH (09:08)
[2018-06-11] MEDS: meTOproloL SUCCINATE 50 MG (TOPROL XL) TAB PO SCH (09:08)
[2018-06-11] MEDS: ASPIRIN 81 MG CHEW (CHILDREN'S ASA) PO SCH (09:08)
[2018-06-11 11:43] VITALS: BP 129/84
== END 2018-06-11 11:47 | disposition home or self-care (01) | DRG 247 ==
LOC: ER 10:14 → SURG 11:25 → ICU 13:45 → 4TH 06-10 14:55
PROVIDERS: ADMIT Internal Medicine Cardiovascular Disease; ATTEND Internal Medicine Cardiovascular Disease
PROC: 0270346 Dilation of Coronary Artery, One Artery, Bifurcation, with Drug-eluting Intraluminal Device, Percutaneous Approach (ICD-10-PCS; principal; 2018-06-09)
PROC: 027034Z Dilation of Coronary Artery, One Artery with Drug-eluting Intraluminal Device, Percutaneous Approach (ICD-10-PCS; 2018-06-09)
PROC: 4A023N7 Measurement of Cardiac Sampling and Pressure, Left Heart, Percutaneous Approach (ICD-10-PCS; 2018-06-09)
PROC: B2111ZZ Fluoroscopy of Multiple Coronary Arteries using Low Osmolar Contrast (ICD-10-PCS; 2018-06-09)
PROC: B2151ZZ Fluoroscopy of Left Heart using Low Osmolar Contrast (ICD-10-PCS; 2018-06-09)
DX: I21.09 ST elevation (STEMI) myocardial infarction involving other coronary artery of anterior wall (principal); I25.10 Atherosclerotic heart disease of native coronary artery without angina pectoris; I10 Essential (primary) hypertension; E78.5 Hyperlipidemia, unspecified; G47.30 Sleep apnea, unspecified
CPT/HCPCS: 36415; 71046; 80053; 80061; 83735; 83874; 83880; 84443; 84484; 85025; 85610; 85730; 93005; 93306; 93458; 96361; 96372; 96374; 96375; 96376

== ENCOUNTER → 2018-06-18 | Outpatient (CLI) | payer OTHER ==
[~2018-06-18] MED LIST: ASPI-999 PO; CLOP75TA28 PO; CYCL10TA9 PO; DIPH1TAB PO; LISI-556 PO; METO-370 PO; ROSU20TA31 PO
[2018-06-18 11:01] LABS: BUN/CREATININE RATIO 12; CALCIUM 9.8 MG/DL (8.5-10.1); CARBON DIOXIDE 26 MMOL/L (21-32); CHLORIDE 105 MMOL/L (98-107); CREATININE SERUM 1.08 MG/DL (0.60-1.30); GFR ESTIMATED > 60; GLUCOSE 97 MG/DL (70-105); MAGNESIUM 2.2 MG/DL (1.8-2.4); POTASSIUM 4.6 MMOL/L (3.6-5.0); SODIUM 138 MMOL/L (135-145)
== END ==
LOC: LAB 10:29
PROVIDERS: ATTEND Nurse Practitioner Family
DX: I25.10 Atherosclerotic heart disease of native coronary artery without angina pectoris (principal); E78.2 Mixed hyperlipidemia; E83.41 Hypermagnesemia
CPT/HCPCS: 36415; 80048; 83735

== ENCOUNTER → 2018-07-20 | Outpatient (CLI) | payer OTHER ==
[2018-07-20 10:03] LABS: BASOPHILS % (AUTO) 0 % (0-10); EOSINOPHILS # (AUTO) 0.2 10^3/uL (0.0-0.3); EOSINOPHILS % (AUTO) 3 % (0-10); HEMATOCRIT 47 % (40-54); HEMOGLOBIN 16.1 G/DL (13.3-17.7); LYMPHOCYTES # (AUTO) 2.2 X 10^3 (1.0-4.0); LYMPHOCYTES % (AUTO) 23 % (12-44); MEAN CORPUSCULAR HEMOGLOBIN 30 PG (25-34); MEAN CORPUSCULAR HGB CONC 34 G/DL (32-36); MEAN CORPUSCULAR VOLUME 89 FL (80-99); MEAN PLATELET VOLUME 9.7 FL (7.4-10.4); MONOCYTES # (AUTO) 0.8 X 10^3 (0.0-1.0); MONOCYTES % (AUTO) 8 % (0-12); NEUTROPHILS # (AUTO) 6.2 X 10^3 (1.8-7.8); NEUTROPHILS % (AUTO) 66 % (42-75); PLATELET COUNT 273 10^3/uL (130-400); WHITE BLOOD COUNT 9.4 10^3/uL (4.3-11.0)
[2018-07-20 10:31] LABS: ALANINE AMINOTRANSFERASE 56 U/L (0-55); ALBUMIN 4.6 GM/DL (3.2-4.5); ALKALINE PHOSPHATASE 56 U/L (40-136); BILIRUBIN,TOTAL 0.7 MG/DL (0.1-1.0); BUN/CREATININE RATIO 10; CALCIUM 9.5 MG/DL (8.5-10.1); CARBON DIOXIDE 24 MMOL/L (21-32); CHLORIDE 105 MMOL/L (98-107); CHOLESTEROL 117 MG/DL (< 200); GFR ESTIMATED > 60; GLUCOSE 96 MG/DL (70-105); HDL CHOLESTEROL 30 MG/DL (40-60); POTASSIUM 4.3 MMOL/L (3.6-5.0); SODIUM 137 MMOL/L (135-145); TOTAL PROTEIN 7.6 GM/DL (6.4-8.2); TRIGLYCERIDES 97 MG/DL (<150); VLDL CHOLESTEROL 19 MG/DL (5-40)
== END ==
LOC: LAB 09:48
PROVIDERS: ATTEND Internal Medicine Cardiovascular Disease
DX: I10 Essential (primary) hypertension (principal); E78.5 Hyperlipidemia, unspecified; I25.5 Ischemic cardiomyopathy; I25.10 Atherosclerotic heart disease of native coronary artery without angina pectoris; E66.8 Other obesity
CPT/HCPCS: 36415; 80053; 80061; 84443; 85025

== ENCOUNTER → 2018-10-12 | Outpatient (CLI) | payer OTHER ==
[~2018-10-12] MED LIST changes: -ROSU20TA31 PO; +ROSU20TA32 PO
[2018-10-12 10:20] LABS: ALANINE AMINOTRANSFERASE 51 U/L (0-55); ALBUMIN 4.5 GM/DL (3.2-4.5); ALKALINE PHOSPHATASE 58 U/L (40-136); BILIRUBIN,TOTAL 0.9 MG/DL (0.1-1.0); BUN/CREATININE RATIO 11; CALCIUM 9.7 MG/DL (8.5-10.1); CARBON DIOXIDE 22 MMOL/L (21-32); CHLORIDE 105 MMOL/L (98-107); CREATININE SERUM 1.07 MG/DL (0.60-1.30); GFR ESTIMATED > 60; GLUCOSE 95 MG/DL (70-105); POTASSIUM 4.3 MMOL/L (3.6-5.0); SODIUM 139 MMOL/L (135-145); TOTAL PROTEIN 7.7 GM/DL (6.4-8.2)
== END ==
LOC: LAB 09:51
PROVIDERS: ATTEND Nurse Practitioner Family
DX: E78.49 Other hyperlipidemia (principal)
CPT/HCPCS: 36415; 80053

== ENCOUNTER → 2018-10-30 | Outpatient (CLI) | payer OTHER | LOC: RAD 12:04 | PROVIDERS: ATTEND Internal Medicine Cardiovascular Disease | DX: I25.10 Atherosclerotic heart disease of native coronary artery without angina pectoris (principal); E78.5 Hyperlipidemia, unspecified; I10 Essential (primary) hypertension; G47.33 Obstructive sleep apnea (adult) (pediatric); R25.2 Cramp and spasm | CPT/HCPCS: 93923 ==

== ENCOUNTER → 2018-11-09 | Outpatient (CLI) | payer OTHER | LOC: CARD 08:34 | PROVIDERS: ATTEND Internal Medicine Cardiovascular Disease | DX: I11.9 Hypertensive heart disease without heart failure (principal); I25.10 Atherosclerotic heart disease of native coronary artery without angina pectoris; E78.5 Hyperlipidemia, unspecified; G47.33 Obstructive sleep apnea (adult) (pediatric); I70.219 Atherosclerosis of native arteries of extremities with intermittent claudication, unspecified extremity | CPT/HCPCS: 93306 ==

== ENCOUNTER 2018-11-10 20:46 | Outpatient (CLI) | payer OTHER | END 2018-11-11 06:39 | disposition home or self-care (01) | LOC: SLEEP 20:46 | PROVIDERS: ATTEND Nurse Practitioner Family | DX: G47.33 Obstructive sleep apnea (adult) (pediatric) (principal); G47.36 Sleep related hypoventilation in conditions classified elsewhere; G47.61 Periodic limb movement disorder; I47.9 Paroxysmal tachycardia, unspecified; I25.10 Atherosclerotic heart disease of native coronary artery without angina pectoris | CPT/HCPCS: 95811 ==

== ENCOUNTER → 2018-12-07 | Outpatient (CLI) | payer OTHER | LOC: CARD 08:49 | PROVIDERS: ATTEND Nurse Practitioner Family | DX: R00.2 Palpitations (principal) | CPT/HCPCS: 93225; 93226 ==

== ENCOUNTER → 2019-01-15 | Outpatient (CLI) | payer OTHER ==
[2019-01-15 17:08] LABS: CHOLESTEROL 150 MG/DL (< 200); HDL CHOLESTEROL 38 MG/DL (40-60); TRIGLYCERIDES 126 MG/DL (<150); VLDL CHOLESTEROL 25 MG/DL (5-40)
[2019-01-16 09:21] LABS: BASOPHILS % (AUTO) 0 % (0-10); EOSINOPHILS # (AUTO) 0.3 10^3/uL (0.0-0.3); EOSINOPHILS % (AUTO) 2 % (0-10); HEMATOCRIT 48 % (40-54); HEMOGLOBIN 16.4 G/DL (13.3-17.7); LYMPHOCYTES # (AUTO) 2.5 X 10^3 (1.0-4.0); LYMPHOCYTES % (AUTO) 22 % (12-44); MEAN CORPUSCULAR HEMOGLOBIN 31 PG (25-34); MEAN CORPUSCULAR HGB CONC 35 G/DL (32-36); MEAN CORPUSCULAR VOLUME 89 FL (80-99); MEAN PLATELET VOLUME 10.2 FL (7.4-10.4); MONOCYTES # (AUTO) 1.1 X 10^3 (0.0-1.0); MONOCYTES % (AUTO) 9 % (0-12); NEUTROPHILS # (AUTO) 7.8 X 10^3 (1.8-7.8); NEUTROPHILS % (AUTO) 66 % (42-75); PLATELET COUNT 262 10^3/uL (130-400); RED CELL DISTRIBUTION WIDTH 12.9 % (10.0-14.5); WHITE BLOOD COUNT 11.7 10^3/uL (4.3-11.0)
[2019-01-16 09:32] LABS: ALANINE AMINOTRANSFERASE 48 U/L (0-55); ALBUMIN 4.7 GM/DL (3.2-4.5); ALKALINE PHOSPHATASE 64 U/L (40-136); BILIRUBIN,TOTAL 0.8 MG/DL (0.1-1.0); BUN/CREATININE RATIO 10; CALCIUM 9.7 MG/DL (8.5-10.1); CARBON DIOXIDE 21 MMOL/L (21-32); CHLORIDE 105 MMOL/L (98-107); CREATININE SERUM 1.11 MG/DL (0.60-1.30); GFR ESTIMATED > 60; GLUCOSE 83 MG/DL (70-105); MAGNESIUM 2.1 MG/DL (1.6-2.4); POTASSIUM 4.6 MMOL/L (3.6-5.0); SODIUM 140 MMOL/L (135-145); TOTAL PROTEIN 7.8 GM/DL (6.4-8.2)
== END ==
LOC: LAB 16:28
PROVIDERS: ATTEND Internal Medicine Cardiovascular Disease
DX: I25.10 Atherosclerotic heart disease of native coronary artery without angina pectoris (principal); E78.5 Hyperlipidemia, unspecified; I10 Essential (primary) hypertension; I48.0 Paroxysmal atrial fibrillation; G47.33 Obstructive sleep apnea (adult) (pediatric); G47.61 Periodic limb movement disorder
CPT/HCPCS: 36415; 80053; 80061; 83735; 84443; 85025; 85652

== ENCOUNTER → 2020-03-27 | Outpatient (CLI) | payer OTHER ==
[~2020-03-27] MED LIST changes: -LISI-556 PO; +LISI-729 PO; -METO-370 PO; +METO50TA7 PO
[2020-03-27 11:52] LABS: ALANINE AMINOTRANSFERASE 61 U/L (0-55); ALBUMIN 4.4 GM/DL (3.2-4.5); ALKALINE PHOSPHATASE 55 U/L (40-136); BILIRUBIN,TOTAL 0.8 MG/DL (0.1-1.0); BUN/CREATININE RATIO 11; CALCIUM 9.5 MG/DL (8.5-10.1); CARBON DIOXIDE 24 MMOL/L (21-32); CHLORIDE 104 MMOL/L (98-107); CHOLESTEROL 132 MG/DL (< 200); CREATININE SERUM 1.06 MG/DL (0.60-1.30); GFR ESTIMATED > 60; GLUCOSE 93 MG/DL (70-105); HDL CHOLESTEROL 35 MG/DL (40-60); POTASSIUM 4.2 MMOL/L (3.6-5.0); SODIUM 140 MMOL/L (135-145); TOTAL PROTEIN 7.9 GM/DL (6.4-8.2); TRIGLYCERIDES 99 MG/DL (<150); VLDL CHOLESTEROL 20 MG/DL (5-40)
== END ==
LOC: LAB 10:53
PROVIDERS: ATTEND Internal Medicine Cardiovascular Disease
DX: I48.0 Paroxysmal atrial fibrillation (principal)
CPT/HCPCS: 36415; 80053; 80061; 83735

== ENCOUNTER → 2020-06-19 | Outpatient (CLI) | payer OTHER ==
[2020-06-19 11:22] LABS: BASOPHILS # (AUTO) 0.1 10^3/uL (0.0-0.1); BASOPHILS % (AUTO) 1 % (0-10); EOSINOPHILS # (AUTO) 0.3 10^3/uL (0.0-0.3); EOSINOPHILS % (AUTO) 2 % (0-10); HEMATOCRIT 52 % (40-54); HEMOGLOBIN 17.1 g/dL (13.3-17.7); LYMPHOCYTES # (AUTO) 2.7 10^3/uL (1.0-4.0); LYMPHOCYTES % (AUTO) 25 % (12-44); MEAN CORPUSCULAR HEMOGLOBIN 30 pg (25-34); MEAN CORPUSCULAR HGB CONC 33 g/dL (32-36); MEAN CORPUSCULAR VOLUME 92 fL (80-99); MEAN PLATELET VOLUME 9.4 fL (9.0-12.2); MONOCYTES # (AUTO) 0.9 10^3/uL (0.0-1.0); MONOCYTES % (AUTO) 8 % (0-12); NEUTROPHILS # (AUTO) 7.1 10^3/uL (1.8-7.8); NEUTROPHILS % (AUTO) 64 % (42-75); PLATELET COUNT 263 10^3/uL (130-400)
[2020-06-19 11:31] LABS: CHLORIDE 106 MMOL/L (98-107); POTASSIUM 4.6 MMOL/L (3.6-5.0); SODIUM 139 MMOL/L (135-145)
[2020-06-19 11:32] LABS: ALBUMIN 4.4 GM/DL (3.2-4.5)
[2020-06-19 11:33] LABS: CALCIUM 9.2 MG/DL (8.5-10.1); TRIGLYCERIDES 123 MG/DL (<150); VLDL CHOLESTEROL 25 MG/DL (5-40)
[2020-06-19 11:34] LABS: GLUCOSE 90 MG/DL (70-105); TOTAL PROTEIN 7.5 GM/DL (6.4-8.2)
[2020-06-19 11:35] LABS: CARBON DIOXIDE 25 MMOL/L (21-32)
[2020-06-19 11:36] LABS: BILIRUBIN,TOTAL 0.9 MG/DL (0.1-1.0)
[2020-06-19 11:37] LABS: ALKALINE PHOSPHATASE 49 U/L (40-136); CREATININE SERUM 0.95 MG/DL (0.60-1.30); GFR ESTIMATED > 60
[2020-06-19 11:38] LABS: CHOLESTEROL 126 MG/DL (< 200)
[2020-06-19 11:39] LABS: BUN/CREATININE RATIO 11
[2020-06-19 11:40] LABS: HDL CHOLESTEROL 34 MG/DL (40-60)
[2020-06-19 11:41] LABS: ALANINE AMINOTRANSFERASE 59 U/L (0-55)
== END ==
LOC: LAB 11:02
PROVIDERS: ATTEND Internal Medicine Cardiovascular Disease
DX: E78.2 Mixed hyperlipidemia (principal); R53.81 Other malaise
CPT/HCPCS: 36415; 80053; 80061; 84443; 85025

== ENCOUNTER → 2020-07-07 | Outpatient (CLI) | payer OTHER ==
[~2020-07-07] VITALS: Ht 182 cm; Wt 118.0 kg
[~2020-07-07] MED LIST changes: +CATHETER FLUSH 10 ML SYR IV PRN; +REGADENOSON 0.4 MG/5 ML SYR (LEXISCAN) IV ONE
[2020-07-07 12:11] VITALS: BP 139/88
--- NOTE | 2020-07-07 15:51 | STRESS TEST ---
DATE OF SERVICE: 07/07/2020 RESTING AND POST REGADENOSON TECHNETIUM-99M TETROFOSMIN SPECT CT IMAGING ORDERING PHYSICIAN: Dr. Charles. PRIMARY PHYSICIAN: Dr. Alejandra. CLINICAL DIAGNOSES: Coronary artery disease. Baseline images were carried out after injection of 10.4 mCi of technetium-99m Tetrofosmin. This was followed by 0.4 mg regadenoson and 32.7 mCi of technetium-99m Tetrofosmin for stress imaging. The electrocardiogram showed sinus rhythm at baseline. It did not change significantly with the regadenoson infusion. The patient tolerated the procedure well. Review of images at rest and following stress does not indicate any distinct perfusion defects consistent with significant myocardial ischemia or infarction. Gated images show normal global left ventricular systolic function with normal regional wall motion. Left ventricular ejection fraction is calculated to be 65%. Left ventricular end diastolic volume is 78 mL. TID is absent (1.03). CONCLUSIONS: 1. No evidence of any significant myocardial ischemia or infarction on this study. 2. Normal regional wall motion. 3. Normal global left ventricular systolic function with a calculated ejection fraction of 65%. Job ID: [id number] DocumentID: [id number] Dictated Date: 07/07/2020 15:22:26 Bee Robber Date: 07/07/2020 15:50:59 Dictated By: ASTER CHARLES MD, MA, FACP, FACC,
== END ==
LOC: CARD 10:27
PROVIDERS: ATTEND Internal Medicine Cardiovascular Disease
DX: I34.0 Nonrheumatic mitral (valve) insufficiency (principal); I51.7 Cardiomegaly; I49.3 Ventricular premature depolarization; I25.10 Atherosclerotic heart disease of native coronary artery without angina pectoris
CPT/HCPCS: 78452; 93017; 93225; 93226; 93306; A9502

== ENCOUNTER 2020-07-23 09:06 | Emergency (ER) | payer OTHER ==
[~2020-07-23] VITALS: Ht 182 cm; Wt 113.0 kg
[~2020-07-23 09:06] MED LIST changes: -CATHETER FLUSH 10 ML SYR IV PRN; -REGADENOSON 0.4 MG/5 ML SYR (LEXISCAN) IV ONE
--- NOTE | 2020-07-23 09:22 | ED Abdominal Pain ---
General Stated Complaint: CP,N/V,DIARRHEA,SOB Source of Information: Patient Exam Limitations: No Limitations History of Present Illness Date Seen by Provider: Jul 23, 2020 Time Seen by Provider: 09:05 Initial Comments Patient presents ER by private conveyance from home with chief complaint that sometime in the night he began to experience nausea vomiting diarrhea about 3:00 in the morning. Since that time he started to experience chest pain in his left chest and some shortness of air. He says he has a history of 2 stents and hypertension and hyperlipidemia but denies a history of diabetes. He is not a s moker. He has no known pulmonary disease. He is known to Dr. Charles and Dr. Alejandra. He says he is having loose watery stools and copious watery vomiting. No blood in the stool or emesis. No fevers or chills. Has had both COVID-19 vaccinations. He is on Eliquis he thinks for atrial fibrillation. History of sleep apnea. Stress test from July 07, 2020, little over 2 weeks ago without evidence of CA or infarction. EF of 65%. He denies a history of abdominal surgeries, irritable bowel or inflammatory bowel disease. 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 Allergies and Home Medications Allergies Coded Allergies: No Known Drug Allergies (Unverified , 06/09/18) Home Medications Aspirin 81 Mg Tab.chew, 81 MG PO DAILY Prescribed by: TOMASA LIANG on 06/11/18 0845 Clopidogrel Bisulfate 75 Mg Tablet, 75 MG PO DAILY Prescribed by: TOMASA LIANG on 06/11/18 0845 Cyclobenzaprine HCl 10 Mg Tablet, 5 MG PO PRN PRN for BACK PAIN, (Reported) Lisinopril 5 Mg Tablet, 5 MG PO DAILY Prescribed by: TOMASA LIANG on 06/11/18 0845 Metoprolol Succinate 50 Mg Tab.er.24h, 50 MG PO DAILY, (Reported) Ondansetron 4 Mg Tab.rapdis, 4 MG PO Q6H PRN for NAUSEA/VOMITING Prescribed by: JUAQUIN VAZQUEZ on 07/23/20 1143 Patient Home Medication List Home Medication List Reviewed: Yes Review of Systems Review of Systems Constitutional: No chills, No diaphoresis EENTM: No Blurred Vision, No Double Vision Respiratory: Denies Cough; Shortness of Air Cardiovascular: See HPI, Chest Pain; Denies Edema Gastrointestinal: See HPI, Abdominal Pain; Denies Constipated; Diarrhea, Nausea , Vomiting Genitourinary: Denies Burning, Denies Discharge Musculoskeletal: No back pain, No joint pain Psychiatric/Neurological: Denies Anxiety, Denies Depressed All Other Systems Reviewed Negative Unless Noted: Yes Past Vyjdufx-Dhnyqd-Oioqxz Hx Patient Social History Alcohol Use: Denies Use Smoking Status: Never a Smoker Recent Hopitalizations: No Seasonal Allergies Seasonal Allergies: No Past Medical History Surgeries: Yes (colonoscopy) Respiratory: No Cardiac: Yes High Cholesterol, Hypertension Neurological: No Genitourinary: No Gastrointestinal: No Musculoskeletal: Yes Back Injury Endocrine: No HEENT: No Cancer: No Psychosocial: No Blood Disorders: No Physical Exam Vital Signs Vital Signs - First Documented 07/23/20 09:10 Temp 36.2 Pulse 95 Resp 19 B/P (MAP) 133/89 (104) Pulse Ox 96 O2 Delivery Room Air Capillary Refill : Height/Weight/BMI Height: 6'0.00" Weight: 255lbs. 9.6oz. 115.717101tj; 35.62 BMI Method:Stated General Appearance: WD/WN, mild distress HEENT: PERRL/EOMI, pharynx normal Neck: full range of motion, normal inspection Respiratory: lungs clear, normal breath sounds, no respiratory distress, no accessory muscle use Cardiovascular: normal peripheral pulses, regular rate, rhythm Peripheral Pulses: 2+ Radial Pulses (R), 2+ Radial Pulses (L) Gastrointestinal: normal bowel sounds (Active), non tender, soft Extremities: non-tender, normal inspection, normal capillary refill Neurologic/Psychiatric: alert, normal mood/affect, oriented x 3 Skin: normal color, warm/dry Progress/Results/Core Measures Results/Orders Lab Results Laboratory Tests Test 07/23/20 09:19 07/23/20 10:20 07/23/20 11:42 Range/Units White Blood Count 20.2 H 4.3-11.0 10^3/uL Red Blood Count 6.06 H 4.30-5.52 10^6/uL Hemoglobin 18.5 H 13.3-17.7 g/dL Hematocrit 55 H 40-54 % Mean Corpuscular Volume 90 80-99 fL Mean Corpuscular Hemoglobin 31 25-34 pg Mean Corpuscular Hemoglobin Concent 34 32-36 g/dL Red Cell Distribution Width 13.2 10.0-14.5 % Platelet Count 252 130-400 10^3/uL Mean Platelet Volume 10.1 9.0-12.2 fL Immature Granulocyte % (Auto) 1 % Neutrophils (%) (Auto) 90 H 42-75 % Lymphocytes (%) (Auto) 3 L 12-44 % Monocytes (%) (Auto) 6 0-12 % Eosinophils (%) (Auto) 0 0-10 % Basophils (%) (Auto) 0 0-10 % Neutrophils # (Auto) 18.2 H 1.8-7.8 10^3/uL Lymphocytes # (Auto) 0.6 L 1.0-4.0 10^3/uL Monocytes # (Auto) 1.2 H 0.0-1.0 10^3/uL Eosinophils # (Auto) 0.1 0.0-0.3 10^3/uL Basophils # (Auto) 0.1 0.0-0.1 10^3/uL Immature Granulocyte # (Auto) 0.1 0.0-0.1 10^3/uL Neutrophils % (Manual) 86 % Lymphocytes % (Manual) 2 % Monocytes % (Manual) 6 % Eosinophils % (Manual) 0 % Basophils % (Manual) 0 % Band Neutrophils 6 % Blood Morphology Comment NORMAL Sodium Level 139 135-145 MMOL/L Potassium Level 5.5 H 3.6-5.0 MMOL/L Chloride Level 103 98-107 MMOL/L Carbon Dioxide Level 19 L 21-32 MMOL/L Anion Gap 17 H 5-14 MMOL/L Blood Urea Nitrogen 15 7-18 MG/DL Creatinine 1.32 H 0.60-1.30 MG/DL Estimat Glomerular Filtration Rate 55 BUN/Creatinine Ratio 11 Glucose Level 142 H 70-105 MG/DL Calcium Level 9.4 8.5-10.1 MG/DL Corrected Calcium 8.5-10.1 MG/DL Magnesium Level 1.8 1.6-2.4 MG/DL Total Bilirubin 1.6 H 0.1-1.0 MG/DL Aspartate Amino Transf (AST/SGOT) 103 H 5-34 U/L Alanine Aminotransferase (ALT/SGPT) 77 H 0-55 U/L Alkaline Phosphatase 56 40-136 U/L Myoglobin 114.0 H 10.0-92.0 NG/ML Troponin I < 0.028 < 0.028 <0.028 NG/ML C-Reactive Protein High Sensitivity 0.57 H 0.00-0.50 MG/DL Total Protein 8.8 H 6.4-8.2 GM/DL Albumin 4.7 H 3.2-4.5 GM/DL Lipase 11 8-78 U/L Prothrombin Time 14.2 12.2-14.7 SEC INR Comment 1.1 0.8-1.4 Activated Partial Thromboplast Time 30 24-35 SEC My Orders Orders - JUAQUIN VAZQUEZ Continuous Ekg Monitoring (07/23/20 09:10) Ekg Tracing (07/23/20 09:10) Cbc With Automated Diff (07/23/20:16) Magnesium (07/23/20 09:16) Chest 1 View, Ap/Pa Only (07/23/20 09:16) Comprehensive Metabolic Panel (07/23/20 09:16) Myoglobin Serum (07/23/20 09:16) Protime With Inr (07/23/20 09:16) Partial Thromboplastin Time (07/23/20 09:16) O2 (07/23/20 09:16) Lipid Panel (07/24/20 06:00) Ed Iv/Invasive Line Start (07/23/20 09:16) Lipase (07/23/20 09:16) Troponin I (07/23/20 09:16) Aspirin Chewable Tablet (Baby Aspirin Ch (07/23/20 09:30) Ondansetron Injection (Zofran Injectio (07/23/20 09:30) Ed Iv/Invasive Line Start (07/23/20 09:17) Lactated Ringers (Lr 1000 Ml Iv Solution (07/23/20 09:30) Hs C Reactive Protein (07/23/20 09:24) Pantoprazole Injection (Protonix Injecti (07/23/20 09:30) Manual Differential (07/23/20 09:19) Ct Abd/Pelv W (Appendicitis) (07/23/20 09:59) Iohexol Injection (Omnipaque 350 Mg/Ml 1 (07/23/20 10:15) Di Iv Start (Assessment) .IV start (07/23/20 10:03) Received Contrast (Hold Metformin- Contr (07/23/20 10:15) Sodium Chloride Flush (Catheter Flush Sy (07/23/20 10:15) Ns (Ivpb) (Sodium Chloride 0.9% Ivpb Bag (07/23/20 10:15) Lactated Ringers (Lr 1000 Ml Iv Solution (07/23/20 11:41) Troponin I (07/23/20 11:41) Medications Given in ED Current Medications Medications Dose Ordered Sig/Duglas Route Start Time Stop Time Status Last Admin Dose Admin Aspirin 324 mg ONCE ONCE PO 07/23/20 09:30 07/23/20 09:31 DC 07/23/20 09:25 324 MG Iohexol 100 ml ONCE ONCE IV 07/23/20 10:15 07/23/20 10:16 DC 07/23/20 10:34 100 ML Lactated Ringer's 1,000 ml @ 0 mls/hr Q0M ONCE IV 07/23/20 09:30 07/23/20 09:31 DC 07/23/20 09:25 1,000 MLS/HR Ondansetron HCl 8 mg ONCE ONCE IVP 07/23/20 09:30 07/23/20 09:31 DC 07/23/20 09:25 8 MG Pantoprazole 40 mg ONCE ONCE IV 07/23/20 09:30 07/23/20 09:31 DC 07/23/20 09:52 40 MG Sodium Chloride 10 ml NEEDED PRN IV 07/23/20 10:15 07/23/20 10:34 10 ML Sodium Chloride 100 ml ONCE ONCE IV 07/23/20 10:15 07/23/20 10:16 DC 07/23/20 10:34 80 ML Vital Signs/I&O 07/23/20 07/23/20 09:10 09:10 Temp 36.2 Pulse 95 Resp 19 B/P (MAP) 133/89 (104) Pulse Ox 96 O2 Delivery Room Air Progress Progress Note #1: Time: 09:23 Progress Note A liter of lactated Ringer's and check some labs including a lipase. We will give him some aspirin as well as Zofran since he is having some chest pain. Check troponin. Initial EKG shows PVCs but no ST changes. Progress Note #2: Time: 09:59 Progress Note Poison control advises that the vapors can cause nausea and vomiting and symptomatic management is advised. Because of his labs we have recommended also get a CT just to rule out the possibility of appendicitis or other worrisome i ntra-abdominal infection such as diverticulitis/colitis. Progress Note #3: Time: 11:42 Progress Note The patient is not having any chest pain. He says significant improvement of his belly cramping after the IV fluids. Suspect this might be related to his inhalation or a coincidental viral gastroenteritis based on CT and laboratory e xam. We will give him a second liter of lactated ringer. Has not had any further nausea or diarrhea since he is been here. We will do a delta troponin. If these are okay we will send him home on conservative management with follow- up instructions for Dr. Alejandra if he is getting worse. Initial ECG Impression Date: Jul 23, 2020 Initial ECG Impression Time: 09:10 Initial ECG Rate: 98 Initial ECG Rhythm: Normal Sinus Initial ECG Intervals: Normal Initial ECG Impression: Normal Comment Normal sinus rhythm without clinically relevant ST changes. PVC noted. Diagnostic Imaging Diagonstic Imaging: Xray Plain Films/CT/US/NM/MRI: chest Comments NAME: EDOU[facility] REC#: [id number] PT STATUS: REG ER : 1960 PHYSICIAN: JUAQUIN VAZQUEZ MD ADMIT DATE: 07/23/20/ER Signed Date of Exam:07/23/20 CHEST 1 VIEW, AP/PA ONLY EXAMINATION: Chest 1 view HISTORY: Chest pain. Shortness of breath. COMPARISON: 06/09/2018. FINDINGS: The lung volumes are normal. No focal consolidation is seen. No large pleural effusion or pneumothorax is seen. The cardiomediastinal silhouette is normal in size and contour. No acute osseous abnormality is seen. IMPRESSION: 1. No acute pleuroparenchymal process. Dictated by: Dictated on workstation # [id number] Dict: 07/23/20944 Trans: 07/23/20950 [facility], [place] [id number] Interpreted by: CRISTEL TAN DO Electronically signed by: CRISTEL TAN DO 07/23/2051 Reviewed: Reviewed by Me Diagonstic Imaging: CT Plain Films/CT/US/NM/MRI: abdomen, pelvis Comments NAME: [facility]ED[facility] REC#: [id number] PT STATUS: REG ER : 1960 PHYSICIAN: JUAQUIN VAZQUEZ MD ADMIT DATE: 07/23/20/ER Draft Date of Exam:07/23/20 CT ABD/PELV W (APPENDICITIS) PROCEDURE: CT abdomen and pelvis with contrast, rule out appendicitis. TECHNIQUE: Multiple contiguous axial images were obtained through the abdomen and pelvis after the administration of intravenous contrast. All CT scans use one or more of the following dose optimizing techniques: automated exposure control, MA and/or KvP adjustment based on patient size and exam type or iterative reconstruction. INDICATION: Abdominal pain, nausea, and vomiting. COMPARISON: There are no prior CT examinations available for comparison. FINDINGS: The appendix was not well visualized but there are no indirect signs of acute appendicitis. However, there are several fluid-filled segments of small bowel with some wall thickening. This appearance does raise a question of enteritis. In addition, there are also seems to be mild generalized thickening of the wall of the ascending, transverse, and descending colon. This could be secondary to incomplete distention of the colon but the possibility that there is an element of mild colitis should also be considered. There are few diverticula in the sigmoid colon but there is no sign of acute diverticulitis. There is no pelvic mass or free fluid collection evident. The urinary bladder and prostate gland are grossly unremarkable. The liver, spleen, pancreas, adrenals, gallbladder, kidneys, aorta and inferior vena cava, and portal vein are unremarkable for an acute abnormality. 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 The stomach is filled with fluid and difficult to assess. There does appear to be a small hiatal hernia. The lung bases are generally clear. The bone windows show no sign of a fracture or of a destructive lesion. IMPRESSION: 1. The appendix was not well visualized but there are no indirect signs of acute appendicitis. 2. The thickened appearance of the wall of the small bowel and of the colon does raise a question of enteritis/colitis. Clinical follow-up is recommended. 3. There is no acute abnormality of the abdomen and pelvis noted, otherwise. 4. 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 5. These results were discussed with Dr. Vazquez in the ER. Dictated on workstation # [id number] Dict: 07/23/20 1046 Trans: 07/23/20 1104 [id number] [id number] Interpreted by: FARHAD CAMPOVERDE MD Electronically signed by: Reviewed: Reviewed by Me Departure Impression Primary Impression: Gastroenteritis and colitis, toxic Additional Impressions: Smoke inhalation due to chemical fumes and vapors Chest pain Qualified Codes: R07.9 - Chest pain, unspecified Disposition: 01 HOME, SELF-CARE Condition: Stable Departure-Patient Inst. Decision time for Depature: 12:13 Referrals: ASTER CHARLES MD [facility] CHRISTINE ALEJANDRA DO (PCP/Family) Primary Care Physician Patient Instructions: Smoke Inhalation ED, Colitis (DC), Chest Pain (DC) Add. Discharge Instructions: Drink plenty of fluids. Zofran 1 to 2 tablets every 6 hours as necessary for nausea and or vomiting. Imodium 2 tablets initially followed by 1 tablet every 4 hours afterwards that you are still having loose, watery stool. Call Dr. Alejandra and request follow-up appointment if you are not seeing improvement of your symptoms over the next [address] Charles and request follow-up appointment next week for your chest pain. Return to the ER promptly if you are unable to keep up with your fluid intake. Scripts Ondansetron (Ondansetron Odt) 4 Mg Tab.rapdis 4 MG PO Q6H PRN for NAUSEA/VOMITING, #15 TAB 0 Refills Prov: JUAQUIN VAZQUEZ 07/23/20 Work/School Note: Work Release Form Date Seen in the Emergency Department: Jul 23, 2020 Return to Work: Jul 27, 2020 Restrictions: No Restrictions Copy Copies To 1: ASTER CHARLES MD [facility]; CHRISTINE ALEJANDRA TITUS J Jul 23, 2020 09:22
[2020-07-23 09:28] LABS: BASOPHILS # (AUTO) 0.1 10^3/uL (0.0-0.1); BASOPHILS % (AUTO) 0 % (0-10); EOSINOPHILS # (AUTO) 0.1 10^3/uL (0.0-0.3); EOSINOPHILS % (AUTO) 0 % (0-10); HEMATOCRIT 55 % (40-54); HEMOGLOBIN 18.5 g/dL (13.3-17.7); LYMPHOCYTES # (AUTO) 0.6 10^3/uL (1.0-4.0); LYMPHOCYTES % (AUTO) 3 % (12-44); MEAN CORPUSCULAR HEMOGLOBIN 31 pg (25-34); MEAN CORPUSCULAR HGB CONC 34 g/dL (32-36); MEAN CORPUSCULAR VOLUME 90 fL (80-99); MEAN PLATELET VOLUME 10.1 fL (9.0-12.2); MONOCYTES # (AUTO) 1.2 10^3/uL (0.0-1.0); MONOCYTES % (AUTO) 6 % (0-12); NEUTROPHILS # (AUTO) 18.2 10^3/uL (1.8-7.8); NEUTROPHILS % (AUTO) 90 % (42-75); PLATELET COUNT 252 10^3/uL (130-400); WHITE BLOOD COUNT 20.2 10^3/uL (4.3-11.0)
[2020-07-23] MEDS ORDERED: ONDANSETRON 4 MG/2 ML (SDV) Z0FRAN IVP ONE (09:30)
[2020-07-23] MEDS ORDERED: ASPIRIN 81 MG CHEW (CHILDREN'S ASA) PO ONE (09:30)
[2020-07-23] MEDS ORDERED: PANTOPRAZOLE 40 MG (PROTONIX) VIAL IV ONE (09:30)
[2020-07-23] MEDS ORDERED: LACTATED RINGERS 1,000 ML IV ONE (09:30)
--- NOTE | 2020-07-23 09:46 | Diagnostic Imaging Report ---
EXAMINATION: Chest 1 view HISTORY: Chest pain. Shortness of breath. COMPARISON: 06/09/2018. FINDINGS: The lung volumes are normal. No focal consolidation is seen. No large pleural effusion or pneumothorax is seen. The cardiomediastinal silhouette is normal in size and contour. No acute osseous abnormality is seen. IMPRESSION: 1. No acute pleuroparenchymal process. Dictated by: Dictated on workstation # [id number]
[2020-07-23 09:48] LABS: ALBUMIN 4.7 GM/DL (3.2-4.5)
[2020-07-23 09:49] LABS: CHLORIDE 103 MMOL/L (98-107); POTASSIUM 5.5 MMOL/L (3.6-5.0); SODIUM 139 MMOL/L (135-145)
[2020-07-23 09:50] LABS: CALCIUM 9.4 MG/DL (8.5-10.1)
[2020-07-23 09:51] LABS: GLUCOSE 142 MG/DL (70-105); TOTAL PROTEIN 8.8 GM/DL (6.4-8.2)
[2020-07-23 09:52] LABS: CARBON DIOXIDE 19 MMOL/L (21-32)
[2020-07-23 09:53] LABS: BILIRUBIN,TOTAL 1.6 MG/DL (0.1-1.0)
[2020-07-23 09:54] LABS: ALKALINE PHOSPHATASE 56 U/L (40-136)
[2020-07-23 09:55] LABS: CREATININE SERUM 1.32 MG/DL (0.60-1.30); GFR ESTIMATED 55
[2020-07-23 09:56] LABS: BUN/CREATININE RATIO 11
[2020-07-23 09:57] LABS: ALANINE AMINOTRANSFERASE 77 U/L (0-55); BAND NEUTROPHILS 6 %; BASOPHILS % (MANUAL) 0 %; EOSINOPHILS % (MANUAL) 0 %; LYMPHOCYTES % (MANUAL) 2 %; MONOCYTES % (MANUAL) 6 %; NEUTROPHILS % (MANUAL) 86 %; RBC MORPH NORMAL
[2020-07-23 09:58] LABS: MAGNESIUM 1.8 MG/DL (1.6-2.4)
[2020-07-23 09:59] LABS: LIPASE 11 U/L (8-78)
[2020-07-23] MEDS ORDERED: NS 100 ML (IVPB) BAG IV ONE (10:15)
[2020-07-23] MEDS ORDERED: HOLD METFORMIN - RECEIVED CONTRAST 20 ML VIAL IV SCH (10:15)
[2020-07-23] MEDS ORDERED: CATHETER FLUSH 10 ML SYR IV PRN (10:15)
[2020-07-23] MEDS ORDERED: IOHEXOL 350 MG/ML 100 ML (OMNIPAQUE 350) VIAL IV ONE (10:15)
[2020-07-23 10:43] LABS: INR 1.1 (0.8-1.4); PROTHROMBIN TIME PATIENT 14.2 SEC (12.2-14.7)
--- NOTE | 2020-07-23 11:05 | Diagnostic Imaging Report ---
PROCEDURE: CT abdomen and pelvis with contrast, rule out appendicitis. TECHNIQUE: Multiple contiguous axial images were obtained through the abdomen and pelvis after the administration of intravenous contrast. All CT scans use one or more of the following dose optimizing techniques: automated exposure control, MA and/or KvP adjustment based on patient size and exam type or iterative reconstruction. INDICATION: Abdominal pain, nausea, and vomiting. COMPARISON: There are no prior CT examinations available for comparison. FINDINGS: The appendix was not well visualized but there are no indirect signs of acute appendicitis. However, there are several fluid-filled segments of small bowel with some wall thickening. This appearance does raise a question of enteritis. In addition, there are also seems to be mild generalized thickening of the wall of the ascending, transverse, and descending colon. This could be secondary to incomplete distention of the colon but the possibility that there is an element of mild colitis should also be considered. There are few diverticula in the sigmoid colon but there is no sign of acute diverticulitis. There is no pelvic mass or free fluid collection evident. The urinary bladder and prostate gland are grossly unremarkable. The liver, spleen, pancreas, adrenals, gallbladder, kidneys, aorta and inferior vena cava, and portal vein are unremarkable for an acute abnormality. 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 The stomach is filled with fluid and difficult to assess. There does appear to be a small hiatal hernia. The lung bases are generally clear. The bone windows show no sign of a fracture or of a destructive lesion. IMPRESSION: 1. The appendix was not well visualized but there are no indirect signs of acute appendicitis. 2. The thickened appearance of the wall of the small bowel and of the colon does raise a question of enteritis/colitis. Clinical follow-up is recommended. 3. There is no acute abnormality of the abdomen and pelvis noted, otherwise. 4. 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 5. These results were discussed with Dr. Vazquez in the ER. Dictated by: Dictated on workstation # [id number]
[2020-07-23] MEDS ORDERED: LACTATED RINGERS 1,000 ML IV STA (11:41)
[2020-07-23] MEDS ORDERED: ONDA4TAB11 PO (11:43)
[2020-07-23 12:26] VITALS: BP 134/78
== END 2020-07-23 12:26 | disposition home or self-care (01) ==
LOC: EDUNIT# 09:06 → ER 09:08
DX: K52.1 Toxic gastroenteritis and colitis (principal); J70.5 Respiratory conditions due to smoke inhalation; R07.9 Chest pain, unspecified; I10 Essential (primary) hypertension; E11.9 Type 2 diabetes mellitus without complications; Z79.82 Long term (current) use of aspirin; Z79.899 Other long term (current) drug therapy
CPT/HCPCS: 36415; 71045; 74177; 80053; 83690; 83735; 83874; 84484; 85007; 85027; 85610; 85730; 86141; 93005

== ENCOUNTER → 2020-10-08 | Outpatient (CLI) | payer OTHER ==
[~2020-10-08] MED LIST changes: +ONDA4TAB11 PO
--- NOTE | 2020-10-08 10:50 | Diagnostic Imaging Report ---
INDICATION: Severe chest tightness. TIME OF EXAM: 10:44 a.m. COMPARISON: Correlation is made with prior chest from 06/09/2018. FINDINGS: The heart size is stable. There appears to be trace pleural fluid bilaterally. No infiltrates are seen. The pulmonary vascularity is normal. There is no pneumothorax. IMPRESSION: Trace bilateral pleural effusions. Dictated by: Dictated on workstation # [id number]
== END ==
LOC: RAD 10:04
PROVIDERS: ATTEND Nurse Practitioner Family
DX: J90 Pleural effusion, not elsewhere classified (principal)
CPT/HCPCS: 71046